=== PATIENT | female | born 1980 | race Caucasian/White ===

== ENCOUNTER 2021-10-15 21:14 | Emergency (ER) | payer OTHER ==
--- NOTE | 2021-10-15 21:30 | ED Physician Documentation ---
PD HPI ABD PAIN - Stated complaint Stated Complaint: R ABD PX - Chief complaint Chief Complaint: Abd Pain - Additional information Additional information: Patient is a 40-year-old female with past medical significant for partial hysterectomy and Bartlett syndrome presenting to the emergency department with right lower quadrant abdominal pain. Pain began acutely at 1300 hrs. States it feels similar to pain she has had in the past associated with ovarian cysts. Denies any other abdominal surgeries with the exception of a partial hysterectomy but states that she has both ovaries. Denies nausea, vomiting, diarrhea or fever associated with her symptoms. Does endorse for bladder fullness but denies for dysuria, frequency, vaginal discharge, burning or malodor. Review of Systems Ten Systems: 10 systems reviewed and negative GI: reports: Abdominal Pain : reports: Other (Bladder fullness) PD PAST MEDICAL HISTORY - Present Medications Home Medications: Ambulatory Orders Medication Instructions Recorded Confirmed Ibuprofen [Motrin] 800 mg PO Q8H PRN #30 tablet 10/16/21 Nitrofurantoin [Macrobid] 100 mg PO BID #10 cap 10/16/21 Ondansetron Odt [Zofran] 4 mg TL Q6H PRN #10 tablet 10/16/21 - Allergies Allergies/Adverse Reactions: Allergies Allergy/AdvReac Type Severity Reaction Status Date / Time No Known Drug Allergies Allergy Verified 10/15/21 21:23 PD ED PE NORMAL - Vitals Vital signs reviewed: Yes - General General: Alert and oriented X 3. No: No acute distress (Patient laying on her left side clutching her abdomen. 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, No motor deficit, No sensory deficit, Normal speech - Psych Psych: Normal mood Results - Vitals Vitals: Vital Signs - 24 hr 10/15/21 10/15/21 10/15/21 21:18 21:47 22:12 Temperature 35.8 C L Heart Rate 83 80 Respiratory 14 14 14 Rate Blood Pressure 144/70 H O2 Saturation 100 98 Oxygen O2 Source Room air - Labs Labs: Laboratory Tests 10/15/21 10/15/21 10/15/21 21:32 21:32 23:14 WBC 9.1 RBC 4.23 Hgb 12.7 Hct 38.2 MCV 90.3 MCH 30.0 MCHC 33.2 RDW 12.4 Plt Count 269 MPV 10.3 Neut # (Auto) 5.1 Lymph # (Auto) 3.3 Floyd # (Auto) 0.5 Eos # (Auto) 0.0 Baso # (Auto) 0.0 Absolute Nucleated RBC 0.00 Nucleated RBC % 0.0 Sodium 138 Potassium 3.4 L Chloride 109 Carbon Dioxide 19 L Anion Gap 10.0 BUN 10 Creatinine 1.0 Estimated GFR (MDRD) 61 L Glucose 103 H Calcium 8.9 Total Bilirubin 0.4 AST 14 ALT 10 Alkaline Phosphatase 36 L C-Reactive Protein < 1.0 Total Protein 7.3 Albumin 3.9 Globulin 3.4 Albumin/Globulin Ratio 1.1 Lipase 38 Urine Color YELLOW Urine Clarity CLEAR Urine pH 6.0 Ur Specific [place] 1.015 Urine Protein NEGATIVE Urine Glucose (UA) NEGATIVE Urine Ketones NEGATIVE Urine Occult Blood TRACE-INTA Urine Nitrite NEGATIVE Urine Bilirubin NEGATIVE Urine Urobilinogen 0.2 (NORMAL) Ur Leukocyte Esterase MODERATE H Urine RBC 0-5 Urine WBC 11-25 H Ur Squamous Epith Cells FEW Squamous Urine Bacteria Few Ur Microscopic Review INDICATED Urine Culture Comments INDICATED Urine HCG, Qual 10/15/21 23:17 WBC RBC Hgb Hct MCV MCH MCHC RDW Plt Count MPV Neut # (Auto) Lymph # (Auto) Floyd # (Auto) Eos # (Auto) Baso # (Auto) Absolute Nucleated RBC Nucleated RBC % Sodium Potassium Chloride Carbon Dioxide Anion Gap BUN Creatinine Estimated GFR (MDRD) Glucose Calcium Total Bilirubin AST ALT Alkaline Phosphatase C-Reactive Protein Total Protein Albumin Globulin Albumin/Globulin Ratio Lipase Urine Color Urine Clarity Urine pH Ur Specific [place] Urine Protein Urine Glucose (UA) Urine Ketones Urine Occult Blood Urine Nitrite Urine Bilirubin Urine Urobilinogen Ur Leukocyte Esterase Urine RBC Urine WBC Ur Squamous Epith Cells Urine Bacteria Ur Microscopic Review Urine Culture Comments Urine HCG, Qual NEGATIVE PD MEDICAL DECISION MAKING - ED course Complexity details: reviewed results, re-evaluated patient, d/w patient, d/w [facility] ED course: Patient is 40-year-old female with history of hysterectomy and ovarian cysts presenting to the emergency department with right lower quadrant abdominal pain. Afebrile, hematin stable on arrival to the emergency department. Patient was in moderate distress with active nausea and vomiting on arrival to the emergency department. IV access was obtained, medication for pain control and nausea given. Patient continued to have persistent pain and multiple doses of medication both for nausea and pain were required in the emergency department for symptomatic management. Comprehensive labs were obtained were generally within normal limits or nonactionable. Of note there is no leukocytosis or elevation of C-reactive protein that would be concerning for an acute intra- abdominal inflammatory or infectious process. Ultrasonography of the pelvis clearly identified both ovaries, and they were without indications of torsion, significant ovarian cysts and there was no identifiable free fluid in the pelvis. Given patient's persistent symptoms I did follow this up with a CT of the abdomen pelvis in order to rule out any possible kidney stone or other in tra-abdominal abnormality. This was within normal limits. Her urine analysis did have some very minimal indications of infection however she denied any specific symptoms that would be concerning for urinary tract infection. However given that this is the only abnormality I can find that explains the patient's presentation I did elect to initiate a short course of Macrobid here in the emergency department. Patient was monitored in the emergency department for several hours. Given several doses of medication for nausea control. At this time feels well enough to go home. She was encouraged to follow-up carefully with primary care and to return to the emergency department for any new or worsening symptoms. Final clinical impression: Abdominal pain, lower UTI. Departure - Departure Disposition: 01 Home, Self Care Clinical Impression: Abdominal pain, Acute lower UTI Instructions: ED Abdominal Pain Female Non-Specific Abdominal Pain Prescriptions: Nitrofurantoin [Macrobid] 100 mg PO BID #10 cap Ibuprofen [Motrin] 800 mg PO Q8H PRN #30 tablet PRN Reason: PAIN &/OR FEVER Ondansetron Odt [Zofran] 4 mg TL Q6H PRN #10 tablet PRN Reason: Nausea / Vomiting Comments: Thank you for allowing us to care for you today at [facility]. Your prescriptions have been sent electronically to [facility] in [place]. Today in the emergency department your evaluated for any possible life- threatening medical emergency. All the testing including her blood work,The pelvic ultrasound performed in the CT of your abdomen and pelvis were all very reassuring. Your urine analysis did have some very mild indications of infectio n. I will send this for culture. I like you to begin a course of oral antibiotics. You received your first dose here in the emergency department. If there is concern for antibiotic resistance we will contact you directly with those results in the next few days. Please get plenty of rest and drink plenty of fluids. If it anytime you develop any new or worsening symptoms please return to the e mergency department.
[2021-10-15] MEDS ORDERED: HYDROmorphone 1 MG/ML CARPUJECT IVP STA ×2 (21:33→23:01)
[2021-10-15] MEDS ORDERED: ONDANSETRON 4 MG/2 ML VIAL IVP STA ×2 (21:33→23:19)
[2021-10-15] MEDS ORDERED: SODIUM CHLORIDE 0.9% 1,000 ML IV STA (21:33)
[2021-10-15 21:43] LABS: BASOPHILS % (AUTO) 0.2 %; EOSINOPHILS % (AUTO) 0.2 %; HCT - HEMATOCRIT 38.2 % (37.0-47.0); HGB - HEMOGLOBIN 12.7 g/dL (12.0-16.0); LYMPHOCYTES # (AUTO) 3.3 10^3/uL (1.5-3.5); LYMPHOCYTES % (AUTO) 36.8 %; MEAN CORPUSCULAR HGB CONC 33.2 g/dL (32.0-36.0); MEAN CORPUSCULAR VOLUME 90.3 fL (81.0-99.0); MEAN PLATELET VOLUME 10.3 fL (7.9-10.8); MONOCYTES # (AUTO) 0.5 10^3/uL (0.0-1.0); MONOCYTES % (AUTO) 5.7 %; NEUTROPHILS # (AUTO) 5.1 10^3/uL (1.5-6.6); NEUTROPHILS % (AUTO) 56.9 %; PLT - PLATELET COUNT 269 10^3/uL (130-450); RED BLOOD COUNT 4.23 10^6/uL (4.20-5.40); RED CELL DISTRIBUTION WIDTH 12.4 % (12.0-15.0); WHITE BLOOD COUNT 9.1 x10^3/uL (4.8-10.8)
[2021-10-15 21:57] LABS: ALBUMIN 3.9 g/dL (3.2-5.5); ALBUMIN/GLOBULIN RATIO 1.1 (1.0-2.2); ALKALINE PHOSPHATASE 36 IU/L (42-121); ALT ALANINE AMINOTRANSFERASE 10 IU/L (10-60); AST ASPARTATE AMINOTRANSFERASE 14 IU/L (10-42); BILIRUBIN,TOTAL 0.4 mg/dL (0.2-1.0); BUN - BLOOD UREA NITROGEN 10 mg/dL (6-20); CALCIUM 8.9 mg/dL (8.5-10.3); CARBON DIOXIDE - CO2 19 mmol/L (21-32); CHLORIDE 109 mmol/L (101-111); GFR - MDRD 61 (>89); GLUCOSE 103 mg/dL (70-100); LIPASE 38 U/L (22-51); POTASSIUM 3.4 mmol/L (3.5-5.0); SODIUM 138 mmol/L (135-145); TOTAL PROTEIN 7.3 g/dL (6.7-8.2)
[2021-10-15 22:21] LABS: CRP - C-REACTIVE PROTEIN < 1.0 mg/dL (0-1.0)
[2021-10-15] MEDS ORDERED: IOVERSOL 320 100 ML VIAL IVP ONE ×2 (23:19→23:42)
[2021-10-15 23:22] LABS: BILIRUBIN,URINE NEGATIVE (NEGATIVE); GLUCOSE, URINE (UA) NEGATIVE (NEGATIVE); KETONES,URINE (UA) NEGATIVE (NEGATIVE); LEUKOCYTE ESTERASE, URINE MODERATE (NEGATIVE); NITRITE,URINE NEGATIVE (NEGATIVE); OCCULT BLOOD,URINE TRACE-INTA (NEGATIVE); PROTEIN,URINE NEGATIVE (NEGATIVE); UROBILINOGEN,URINE 0.2 (NORMAL) E.U./dL (NORMAL)
[2021-10-15 23:29] LABS: BACTERIA,URINE Few /HPF (None Seen); CLARITY,URINE CLEAR (CLEAR); RBC,URINE 0-5 /HPF (0-5); SQUAMOUS EPITHELIAL CELL,UR FEW Squamous (<= Few)
[2021-10-15 23:30] LABS: HCG UR QUAL NEGATIVE
--- NOTE | 2021-10-15 23:32 | Ultrasound Report ---
PROCEDURE: Pelvic w/Transvag+Doppler Ltd INDICATIONS: RLQ pain, h/o ovarian cyst TECHNIQUE: Real-time scanning was performed of the pelvic organs, with image documentation. Additional endovagi nal scanning was necessary due to incomplete visualization of the adnexal and endometrial structures by transabdominal scanning. Doppler interrogation was performed of the ovaries bilaterally. COMPARISON: None. FINDINGS: Uterus: Uterus is surgically absent. Ovaries: The right ovary measures 2.6 x 1.59 cm with a calculated volume of 3.8 mL. The left ovary me asures 2.3 x 1.4 x 1.8 cm with a calculated volume of 3.0 mL. No adnexal masses. There is patent edith rial and venous flow demonstrated within both ovaries. There are a few small bilateral ovarian follic les Other: No free pelvic fluid. IMPRESSION: 1. No adnexal masses identified. 2. No evidence of ovarian torsion. Reviewed by: Jayy Allen MD on 10/15/2021 11:34 PM PDT Approved by: Jayy Allen MD on 10/15/2021 11:34 PM PDT Station ID: [id number]
--- NOTE | 2021-10-15 23:59 | CT Report ---
PROCEDURE: Abdomen/Pelvis W INDICATIONS: RLQ abd pain CONTRAST: IV CONTRAST: Optiray 320 ml: 100 PO CONTRAST: *NO PO CONTRAST TECHNIQUE: After the administration of intravenous contrast, 5 mm thick sections acquired from the diaphragms to the symphysis. 5 mm thick coronal and sagittal reformats were acquired. For radiation dose reducti on, the following was used: automated exposure control, adjustment of mA and/or kV according to danyelle ent size. COMPARISON: Pelvic ultrasound performed same day. FINDINGS: Image quality: Excellent. Lung bases: Unremarkable. Heart: Heart is normal in size. There is a moderate to large hiatal hernia. ABDOMEN: Liver:There is an indistinct region of mild hypervascularity in the left hepatic lobe suggestive of vascular shunting or a transient hepatic attenuation difference (SERENITY). Gallbladder: Within normal limits without calcified gallstones. Biliary ducts: No biliary ductal dilatation. Pancreas: Unremarkable. Spleen: Normal in size. Adrenal Glands: No adrenal nodules. Kidneys and Ureters: No hydronephrosis. Stomach and Bowel: Stomach, small bowel loops, and colon are normal in caliber and wall thickness. N o pericecal inflammatory changes to suggest appendicitis. Peritoneum: No abnormal intraperitoneal fluid. No free air. Ventral Wall: No hernia. Abdominal Nodes: No retroperitoneal or mesenteric adenopathy by size criteria. Vessels: Aorta and inferior vena cava are normal in size. PELVIS: Pelvic Organs: Unremarkable. Bladder: Unremarkable. Pelvic Nodes: No enlarged lymph nodes. Miscellaneous: No inguinal hernias are seen. Bones: Visualized osseous structures demonstrate no suspicious focal lesions. IMPRESSION: 1. No definite acute intra-abdominal abnormality. Specifically, no evidence of appendicitis. 2. Small to moderate-sized hernia. Reviewed by: Jayy Kelly MD on 10/15/2021 11:58 PM PDT Approved by: Jayy Kelly MD on 10/15/2021 11:58 PM PDT Station ID: [id number]
[2021-10-16] MEDS ORDERED: HYDROcod/ACET 5/325 Prepack 4 PO STA (01:35)
[2021-10-16] MEDS ORDERED: ONDANSETRON ODT 4 MG Prepack 2 TL PRN (01:35)
[2021-10-16] MEDS ORDERED: NITROFURANTOIN MACRO 100 MG CAPSULE PO STA (01:37)
[2021-10-16] MEDS ORDERED: METOCLOPRAMIDE 10 MG/2 ML VIAL IVP STA (02:10)
[2021-10-16 02:51] VITALS: BP 114/78
== END 2021-10-16 02:50 | disposition home or self-care (01) ==
LOC: ED 21:14
DX: N39.0 Urinary tract infection, site not specified (principal)
CPT/HCPCS: 36415; 74177; 76830; 76856; 80053; 81001; 81025; 83690; 85025; 86140; 87086; 93976; 96374; 96375; 96376; 99281; 99284; A9270; J1170; J2765; Q9967; 81003